=== PATIENT | female | born 1940 | race Caucasian/White ===

== ENCOUNTER 2025-07-20 09:06 | Day surgery (SDC) | payer MEDICARE ==
[2025-07-14 10:22] LABS: MEAN PLATELET VOLUME 7.9 FL (7.4-10.4); RED CELL DISTRIBUTION WIDTH 14.7 % (11.5-14.5)
[2025-07-14 10:35] LABS: APTT 30 SECONDS (22-32); CHOL/HDL RATIO 1.9 (0.00-4.99); CREATININE 0.81 MG/DL (0.40-0.90); INR 1.1 INR; LDL CHOLESTEROL 75 MG/DL (50-100); TOTAL CARBON DIOXIDE 33.9 MMOL/L (24-32); eGFR 68 ML/MIN
[~2025-07-20] VITALS: Ht 167.6 cm; Wt 62.3 kg
[2025-07-20] VITALS (7 sets, daily range): BP systolic 116–176; BP diastolic 66–97; PULSE 61–91; RESP 12–16; TEMP 98.6; O2SAT 93–97
[~2025-07-20 09:06] MED LIST: ASPI-611; CHOL200035 PO; COR3.125T PO; EVEP1CAP PO; MULT-1039 PO; OMEG1CAP54 PO; SYN0.075T PO; TRIA1CAP88 PO; VIT1CAPS39 PO; [UNRECOGNIZED DRUG - CODE] PO
[2025-07-20] MEDS ORDERED: MIDAZolam 1mg/ml 10ml vial IV ONE (09:25)
[2025-07-20] MEDS ORDERED: fentaNYL/PF 50MCG/1 ML 2ML syringe IV ONE (09:25)
[2025-07-20] MEDS ORDERED: normal saline 1000ml 1,000 ML IV SCH (09:25)
[2025-07-20] MEDS ORDERED: MAGN100T6 PO (09:54)
[2025-07-20] MEDS ORDERED: [UNRECOGNIZED DRUG - MIXTURE] TOP (09:54)
[2025-07-20] MEDS ORDERED: VITA-321 PO (09:54)
[2025-07-20] MEDS ORDERED: INUL2TAB6 PO (09:54)
[2025-07-20] MEDS ORDERED: FLEC50TA PO (09:54)
[2025-07-20] MEDS ORDERED: FLUT16SP26 NS (09:54)
[2025-07-20] MEDS ORDERED: LOSA100T58 PO (09:54)
[2025-07-20] MEDS ORDERED: APIX5TAB3 PO (09:54)
[2025-07-20] MEDS ORDERED: [UNRECOGNIZED DRUG - OTHER] PO (09:54)
[2025-07-20] MEDS ORDERED: CHLO25TA10 PO (09:54)
[2025-07-20] MEDS ORDERED: VITA0.4T2 PO (09:54)
[2025-07-20] MEDS ORDERED: MAGN100T PO (09:54)
[2025-07-20] MEDS ORDERED: LACT1CAP65 PO (09:54)
[2025-07-20] MEDS ORDERED: midazolam 1 mg/ML 2ml injection ONE (12:03)
[2025-07-20] MEDS ORDERED: fentaNYL/PF 50MCG/1 ML 2ML syringe ONE (12:03)
--- NOTE | 2025-07-20 13:04 | ELECTROCARDIOGRAPH REPORT ---
[facility] Test Date: 2025-07-20 Test Time: 13:01:44 Pat Name: JACK QUINONES Department: [facility] Patient ID: [facility]-[id number] Room: Gender: F Drawing Checker: EUSEBIO : 1940 Requested By: MALAIKA VENEGAS Order Number: [id number] Reading MD: Dr. BETH Jesus Measurements Intervals [place] Rate: 68 P: 0 [place]: 0 QRS: -28 QRSD: 102 T: 223 QT: 515 QTc: 548 Interpretive Statements Atrial flutter Incomplete RBBB and LAFB RSR' in V1 or V2, right VCD or RVH Nonspecific repol abnormality, lateral leads Prolonged QT interval Electronically Signed On 07-20-2025 17:33:[address] BETH Jesus Please click the below link to view image of tracing.
== END 2025-07-20 14:00 | disposition home or self-care (01) ==
LOC: SSTAY O 09:06
PROVIDERS: ATTEND Student in an Organized Health Care Education/Training Program
DX: I48.91 Unspecified atrial fibrillation (principal); I48.92 Unspecified atrial flutter; I45.2 Bifascicular block; R94.31 Abnormal electrocardiogram [ECG] [EKG]; I12.9 Hypertensive chronic kidney disease with stage 1 through stage 4 chronic kidney disease, or unspecified chronic kidney disease; N18.9 Chronic kidney disease, unspecified; I25.10 Atherosclerotic heart disease of native coronary artery without angina pectoris; E78.00 Pure hypercholesterolemia, unspecified; E03.9 Hypothyroidism, unspecified; Z79.01 Long term (current) use of anticoagulants; Z79.890 Hormone replacement therapy; Z79.899 Other long term (current) drug therapy
CPT/HCPCS: 36415; 80048; 80061; 85025; 85610; 85730; 92960; 93005; J2250; J3010; J7030